=== PATIENT | male | born 1990 | race African-American/Black ===

== ENCOUNTER 2020-07-18 16:04 | Emergency (ER) | payer SELFPAY ==
[~2020-07-18] VITALS: Ht 177.8 cm; Wt 81.0 kg
[2020-07-18 17:37] VITALS: BP 156/90
== END 2020-07-18 17:39 | disposition home or self-care (01) ==
LOC: ER 16:04
DX: S61.011A Laceration without foreign body of right thumb without damage to nail, initial encounter (principal); X58.XXXA Exposure to other specified factors, initial encounter; Y93.89 Activity, other specified; Y92.488 Other paved roadways as the place of occurrence of the external cause
CPT/HCPCS: 99281